=== PATIENT | female | born 1960 | race American Indian/Alaskan Native ===

== ENCOUNTER 2016-09-04 09:03 | Outpatient (CLI) | payer MEDICARE ==
--- NOTE | 2016-09-04 10:33 | Mammography Report ---
BILATERAL MAMMOGRAM: No previous studies available. CAD study utilized. FINDINGS: Predominance of adipose tissue bilaterally. No mass or microcalcification. Benign axillary nodes. IMPRESSION: Benign findings. Annual follow-up recommended. BI-RADS CATEGORY: 2 = Benign ACR BI-RADS MAMMOGRAPHIC CODES: 0 = Needs additional imaging evaluation; 1 = Negative; 2 = Benign; 3 = Probably benign; 4 = Suspicious; 5 = Malignant; 6 = Known biopsy-proven malignancy COMMENT: 1. Dense breast tissue, i.e., adenosis, fibrocystic changes, etc., may obscure an underlying neoplasm. 2. Approximately 10% of cancers are not detected with mammography. 3. A negative mammography report should not delay biopsy if a clinically suspicious mass is present. COMMENT: Patient follow-up letters are generated in [employer].
== END 2016-09-04 09:04 | disposition home or self-care (01) ==
LOC: MAMMO 09:03
PROVIDERS: ATTEND Internal Medicine
DX: Z12.31 Encounter for screening mammogram for malignant neoplasm of breast (principal)
CPT/HCPCS: 77067; G0202

== ENCOUNTER 2016-12-22 14:36 | Outpatient (CLI) | payer MEDICARE ==
--- NOTE | 2016-12-22 15:19 | XRay Report ---
Chest 2 views: 07/04/15. History: COPD hypertension. Findings: Normal cardiomediastinal silhouette the trachea is midline. Scarring right lung and left lower lobe. No interval change. No acute consolidation. Impression: No interval change. No acute consolidation.
== END 2016-12-22 14:37 | disposition home or self-care (01) ==
LOC: CARD 14:36
PROVIDERS: ATTEND Internal Medicine
DX: J44.9 Chronic obstructive pulmonary disease, unspecified (principal); I10 Essential (primary) hypertension
CPT/HCPCS: 71020; 93005; 93010

== ENCOUNTER 2017-07-30 15:49 | Emergency (ER) | payer MEDICARE | END 2017-07-30 15:50 | disposition left against medical advice (07) | LOC: ED 15:49 | DX: R50.9 Fever, unspecified (principal); R05 Cough; Z53.21 Procedure and treatment not carried out due to patient leaving prior to being seen by health care provider ==

== ENCOUNTER 2017-10-19 17:56 | Emergency (ER) | payer MEDICARE ==
[2017-10-19 18:20] VITALS: BP 115/93
--- NOTE | 2017-10-19 18:45 | Emergency Department Report ---
ED General Adult HPI - General Chief complaint: Upper Respiratory Infection Stated complaint: FLU LIKE SYMPTOMS Time Seen by Provider: 10/19/17 18:23 Source: patient Mode of arrival: Ambulatory Limitations: No Limitations - History of Present Illness Initial comments: 57 yo female presents with fever cough for 3 weeks. Hx of tobacco abuse. + productive cough. Gradual onset of symptoms. Mild upper back pain. Has had recurrent elbow and hand rash. Itchy. Improves with steroid cream but recurs. -: Gradual, week(s) (3) - Related Data Home Medications Medication Instructions Recorded Confirmed Last Taken ALBUTEROL Inhaler [Proair] 2 puff IH QID PRN 02/06/14 02/06/14 Unknown Fluticasone/Salmeterol [Advair 1 puff IH BID 02/06/14 02/06/14 Unknown Diskus 100-50 mcg] Levothyroxine [Synthroid] 125 mcg PO QAM 02/06/14 02/06/14 Unknown Topiramate [Topamax] 200 mg PO BID 02/06/14 02/06/14 Unknown cloNIDine [Catapres] 0.1 mg PO DAILY 02/06/14 02/06/14 Unknown Previous Rx's Medication Instructions Recorded Last Taken Type ALBUTEROL Inhaler [ProAir HFA 2 puff IH QID PRN #1 inhalation 04/21/14 Unknown Rx Inhaler] Cyclobenzaprine [Flexeril 10mg] 10 mg PO TID PRN #10 tablet 04/21/14 Unknown Rx Azithromycin [Zithromax Z-OSCAR] 250 mg PO DAILY #6 tablet 05/21/14 Unknown Rx Benzonatate [Tessalon Perles] 100 mg PO Q8HR PRN #30 capsule 05/21/14 Unknown Rx Prednisone 20 mg PO BID #10 tablet 05/21/14 Unknown Rx HYDROcodone/ACETAMINOPHEN [[place] 1 each PO BID #5 tablet 12/22/14 Unknown Rx 7.5-325 mg TAB] Ondansetron [Zofran Odt] 4 mg PO BID #4 tab.rapdis 12/22/14 Unknown Rx Cyclobenzaprine [Flexeril 10 MG 10 mg PO Q8H PRN #21 tablet 01/30/15 Unknown Rx TAB] HYDROcodone/APAP 10-325 [[place] 1 each PO Q6HR PRN #20 tablet 01/30/15 Unknown Rx 10-325 mg TAB] Brompheniramine/Pseudoephed/Dm 10 ml PO Q8H PRN #150 ml 07/04/15 Unknown Rx [Bromfed Dm Cough Syrup] methylPREDNISolone [Medrol Dose 4 mg PO QAM #1 pack 07/04/15 Unknown Rx Oscar] HYDROcodone/APAP 5-325 [[place] 1 each PO Q6HR PRN #15 tablet 08/19/15 Unknown Rx 5/325] methOCARBAMOL [Robaxin TAB] 500 mg PO BID #20 tab 10/25/15 Unknown Rx traMADol [Ultram 50 MG tab] 50 mg PO Q6HR PRN #21 tablet 10/25/15 Unknown Rx Levofloxacin [Levaquin] 750 mg PO QDAY 5 Days #5 tablet 10/19/17 Unknown Rx predniSONE [Deltasone] 3 tab PO QDAY 7 Days #21 tab 10/19/17 Unknown Rx Allergies Allergy/AdvReac Type Severity Reaction Status Date / Time codeine Allergy paranoid Verified 10/25/15 18:38 Tetracyclines Allergy Headache Verified 10/25/15 18:38 ED Review of Systems ROS: Stated complaint: FLU LIKE SYMPTOMS Other details as noted in HPI Comment: All other systems reviewed and negative Constitutional: fever. denies: malaise Respiratory: cough Cardiovascular: denies: chest pain ED Past Medical Hx - Past Medical History Hx Hypertension: Yes (verapamil) Hx Arthritis: Yes Hx Headaches / Migraines: Yes (Imitrex and topamax) Hx Asthma: Yes Additional medical history: hypothyroidism - Surgical History Additional Surgical History: hysterectomy. thyroidectomy. "eye surgery from thyroid". - Social History Smoking Status: Current Some Day Smoker Substance Use Type: None - Medications Home Medications: Home Medications Medication Instructions Recorded Confirmed Last Taken Type ALBUTEROL Inhaler [Proair] 2 puff IH QID PRN 02/06/14 02/06/14 Unknown History Fluticasone/Salmeterol [Advair 1 puff IH BID 02/06/14 02/06/14 Unknown History Diskus 100-50 mcg] Levothyroxine [Synthroid] 125 mcg PO QAM 02/06/14 02/06/14 Unknown History Topiramate [Topamax] 200 mg PO BID 02/06/14 02/06/14 Unknown History cloNIDine [Catapres] 0.1 mg PO DAILY 02/06/14 02/06/14 Unknown History ALBUTEROL Inhaler [ProAir HFA 2 puff IH QID PRN #1 inhalation 04/21/14 Unknown Rx Inhaler] Cyclobenzaprine [Flexeril 10mg] 10 mg PO TID PRN #10 tablet 04/21/14 Unknown Rx Azithromycin [Zithromax Z-OSCAR] 250 mg PO DAILY #6 tablet 05/21/14 Unknown Rx Benzonatate [Tessalon Perles] 100 mg PO Q8HR PRN #30 capsule 05/21/14 Unknown Rx Prednisone 20 mg PO BID #10 tablet 05/21/14 Unknown Rx HYDROcodone/ACETAMINOPHEN [[place] 1 each PO BID #5 tablet 12/22/14 Unknown Rx 7.5-325 mg TAB] Ondansetron [Zofran Odt] 4 mg PO BID #4 tab.rapdis 12/22/14 Unknown Rx Cyclobenzaprine [Flexeril 10 MG 10 mg PO Q8H PRN #21 tablet 01/30/15 Unknown Rx TAB] HYDROcodone/APAP 10-325 [[place] 1 each PO Q6HR PRN #20 tablet 01/30/15 Unknown Rx 10-325 mg TAB] Brompheniramine/Pseudoephed/Dm 10 ml PO Q8H PRN #150 ml 07/04/15 Unknown Rx [Bromfed Dm Cough Syrup] methylPREDNISolone [Medrol Dose 4 mg PO QAM #1 pack 07/04/15 Unknown Rx Oscar] HYDROcodone/APAP 5-325 [[place] 1 each PO Q6HR PRN #15 tablet 08/19/15 Unknown Rx 5/325] methOCARBAMOL [Robaxin TAB] 500 mg PO BID #20 tab 10/25/15 Unknown Rx traMADol [Ultram 50 MG tab] 50 mg PO Q6HR PRN #21 tablet 10/25/15 Unknown Rx Levofloxacin [Levaquin] 750 mg PO QDAY 5 Days #5 tablet 10/19/17 Unknown Rx predniSONE [Deltasone] 3 tab PO QDAY 7 Days #21 tab 10/19/17 Unknown Rx ED Physical Exam - General Limitations: No Limitations General appearance: alert, in no apparent distress - Head Head exam: Present: atraumatic, normocephalic - Eye Eye exam: Present: normal appearance - ENT ENT exam: Present: mucous membranes moist - Neck Neck exam: Present: normal inspection - Respiratory Respiratory exam: Present: normal lung sounds bilaterally. Absent: respiratory distress, wheezes, rales, rhonchi - Cardiovascular Cardiovascular Exam: Present: regular rate, normal rhythm, normal heart sounds. Absent: systolic murmur, diastolic murmur, rubs, gallop - GI/Abdominal GI/Abdominal exam: Present: soft, normal bowel sounds. Absent: tenderness, guarding, rebound - Extremities Exam Extremities exam: Present: normal inspection - Back Exam Back exam: Present: normal inspection - Neurological Exam Neurological exam: Present: alert, oriented X3 - Psychiatric Psychiatric exam: Present: normal affect, normal mood - Skin Skin exam: Present: warm, dry, intact, other (left elbox 5 cm circular region, left fifth finger and ulnar portion of hand erythema, patient constantly scratches both areas). Absent: rash ED Course Vital Signs 10/19/17 18:14 Temperature 98.7 F Pulse Rate 74 Respiratory 20 Rate Blood Pressure 115/93 O2 Sat by Pulse 98 Oximetry ED Medical Decision Making - Medical Decision Making acute bronchitis, abx indicated with length of symptoms and hx of tobacco use, contact dermatitis given prednisone for both dermatitis and bronchitis, recommended continued use of steroid cream OTC Critical care attestation.: If time is entered above; I have spent that time in minutes in the direct care of this critically ill patient, excluding procedure time. ED Disposition Clinical Impression: Acute bronchitis Disposition: DC-01 TO HOME OR SELFCARE Is pt being admited?: No Does the pt Need Aspirin: No Condition: Stable Instructions: Acute Bronchitis (ED) Prescriptions: Levofloxacin [Levaquin] 750 mg PO QDAY 5 Days #5 tablet predniSONE [Deltasone] 3 tab PO QDAY 7 Days #21 tab Time of Disposition: 18:49
== END 2017-10-19 18:55 | disposition home or self-care (01) ==
LOC: ED 17:56
DX: J20.9 Acute bronchitis, unspecified (principal); M54.9 Dorsalgia, unspecified; L53.8 Other specified erythematous conditions; I10 Essential (primary) hypertension; M19.90 Unspecified osteoarthritis, unspecified site; G43.909 Migraine, unspecified, not intractable, without status migrainosus; J45.909 Unspecified asthma, uncomplicated; F17.200 Nicotine dependence, unspecified, uncomplicated; E89.0 Postprocedural hypothyroidism; Z90.710 Acquired absence of both cervix and uterus; Z88.1 Allergy status to other antibiotic agents; Z88.5 Allergy status to narcotic agent
CPT/HCPCS: 99282

== ENCOUNTER 2017-12-21 08:31 | Outpatient (CLI) | payer MEDICARE ==
--- NOTE | 2017-12-21 11:29 | Mammography Report ---
Bilateral mammogram: Compared to 09/04/16. CAD study utilized. Findings: Predominantly adipose tissue bilaterally. No mass or microcalcification. Benign nodes. Impression: Benign findings. Annual followup recommended. BI-RADS CATEGORY: 2 = Benign ACR BI-RADS MAMMOGRAPHIC CODES: 0 = Needs additional imaging evaluation; 1 = Negative; 2 = Benign; 3 = Probably benign; 4 = Suspicious; 5 = Malignant; 6 = Known biopsy-proven malignancy COMMENT: 1. Dense breast tissue, i.e., adenosis, fibrocystic changes, etc., may obscure an underlying neoplasm. 2. Approximately 10% of cancers are not detected with mammography. 3. A negative mammography report should not delay biopsy if a clinically suspicious mass is present. COMMENT: Patient follow-up letters are generated in [employer].
== END 2017-12-21 08:32 | disposition home or self-care (01) ==
LOC: MAMMO 08:31
PROVIDERS: ATTEND Internal Medicine
DX: Z12.31 Encounter for screening mammogram for malignant neoplasm of breast (principal)
CPT/HCPCS: 77067

== ENCOUNTER 2018-01-17 07:41 | Outpatient (CLI) | payer MEDICARE ==
--- NOTE | 2018-01-17 12:21 | Nuclear Medicine Report ---
NUCLEAR MEDICINE TRIPLE PHASE BONE SCAN HISTORY: Status post total right knee replacement, right knee pain, evaluate for infection. COMPARISON: None. FINDINGS: Anterior perfusion images of both lower extremities demonstrates symmetric and homogeneous perfusion bilaterally. Blood pool images demonstrate normal and homogeneous distribution of the radiotracer to the visualized lower extremities. Delayed whole-body images demonstrate physiologic uptake of the radiotracer. There is minimal periarticular uptake surrounding the right knee prosthesis but this appears within normal limits given history of knee replacement 6 months ago. No other areas of increased uptake are noted. IMPRESSION: Unremarkable exam. No evidence for infection.
[2018-01-17 12:25] LABS: Basophils % (Auto) 0.6 % (0.0-1.8); Eosinophils # (Auto) 0.2 K/mm3 (0.0-0.4); Eosinophils % (Auto) 3.8 % (0.0-4.3); Hematocrit 39.7 % (30.3-42.9); Lymphocytes # (Auto) 2.6 K/mm3 (1.2-5.4); Lymphocytes % (Auto) 44.3 % (13.4-35.0); Mean Corpuscular HGB Conc 33 % (30-34); Mean Corpuscular Hemoglobin 30 pg (28-32); Mean Corpuscular Volume 92 fl (79-97); Monocytes # (Auto) 0.5 K/mm3 (0.0-0.8); Platelet Count 209 K/mm3 (140-440); Red Cell Distribution Width 15.7 % (13.2-15.2)
[2018-01-17 13:05] LABS: Erythrocyte Sedimentation Rate 10 mm/Hr (0-20)
== END 2018-01-17 07:42 | disposition home or self-care (01) ==
LOC: NM 07:41
DX: M17.11 Unilateral primary osteoarthritis, right knee (principal); J45.909 Unspecified asthma, uncomplicated; F32.9 Major depressive disorder, single episode, unspecified; F17.210 Nicotine dependence, cigarettes, uncomplicated; I10 Essential (primary) hypertension; E07.9 Disorder of thyroid, unspecified; Z90.710 Acquired absence of both cervix and uterus; Z96.651 Presence of right artificial knee joint
CPT/HCPCS: 36415; 78315; 85025; 85652; 86140; A9503

== ENCOUNTER 2019-05-29 10:55 | Outpatient (CLI) | payer MEDICARE ==
--- NOTE | 2019-05-29 13:29 | Magnetic Resonance Report ---
MRI THORACIC SPINE WITHOUT CONTRAST INDICATION / CLINICAL INFORMATION: PAIN IN THORACIC SPINE. Center back pain. TECHNIQUE: Multisequence, multiplanar images of the thoracic spine were obtained. COMPARISON: None available. FINDINGS: ALIGNMENT: No significant malalignment with no significant scoliosis. VERTEBRAE:Normal marrow signal and vertebral body height for age. VISUALIZED SPINAL CORD: No significant abnormality. INTERVERTEBRAL DISCS: There is mild to moderate disc desiccation and narrowing throughout the mid to lower thoracic spine. Minimal posterior bulging discs are identified at T4-5, T5-6 and T6-7. No evide nce for large herniation, large bulging disc or central canal stenosis. The posterior elements are in appropriate relationship. No facet hypertrophy is identified. Longitudinal ligaments are unremarkabl e. PARASPINAL SOFT TISSUES: No significant abnormality. ADDITIONAL FINDINGS: None. IMPRESSION: Mild thoracic spondylosis as described above. No focal disc herniation, spinal canal stenosis or nerv e root compression. Signer Name: Surya Michael Jr, MD Signed: 05/29/2019 1:24 PM Workstation Name: [id number]
== END 2019-05-29 10:56 | disposition home or self-care (01) ==
LOC: MRI 10:55
PROVIDERS: ATTEND Specialist
DX: M47.894 Other spondylosis, thoracic region (principal); I10 Essential (primary) hypertension; Z90.710 Acquired absence of both cervix and uterus; M19.90 Unspecified osteoarthritis, unspecified site; J45.909 Unspecified asthma, uncomplicated; F32.9 Major depressive disorder, single episode, unspecified
CPT/HCPCS: 72146

== ENCOUNTER 2019-06-24 18:32 | Emergency (ER) | payer MEDICARE ==
[2019-06-24 18:48] VITALS: BP 138/100
[2019-06-24] MEDS ORDERED: dexAMETHasone 4 MG/ML VIAL IV ONE (22:00)
[2019-06-24] MEDS ORDERED: KETOROLAC 30 MG/1 ML INJ IV ONE (22:00)
[2019-06-24] MEDS ORDERED: oxyCODONE /ACETAMINOPHEN 5-325MG TAB PO ONE (22:00)
[2019-06-24] MEDS ORDERED: METOCLOPRAMIDE 10 MG/2 ML INJ IV ONE (22:00)
[2019-06-24] MEDS ORDERED: SUMAtriptan SUCCINATE 6 MG/0.5 ML INJ SUB-Q ONE (22:00)
[2019-06-24] MEDS ORDERED: diphenhydrAMINE 50 MG/ML VIAL IV ONE (22:00)
--- NOTE | 2019-06-24 22:04 | Emergency Department Report ---
ED Headache HPI - General Chief Complaint: Headache Stated Complaint: HEADACHE/VOMITING Time Seen by Provider: 06/24/19 22:00 Source: patient Exam Limitations: no limitations - History of Present Illness Initial Comments: Mrs. Perez is a very pleasant 58-year-old female with history of migraine headaches, arthritis, asthma, hypertension, thyroid disease who presents with typical migraine headache in the left temporal region. After receiving eye surgery for cataracts and glaucoma in the left eye, she's had more severe persistent migraine headaches. She has seen her [facility]er [facility] twice since the initial surgery. She also has seen her personal neurologist for treatment of migraine headaches. She has used all of her medication for migraine headaches including Imitrex and Fioricet. Her neurologist administered local injections for blocks in her neck and facial region. The blocks did help for 2 days. However headache has returned. She denies fever. Denies vomiting. Denies visual changes. She is legally blind. Timing/Duration: other (3 weeks) Quality: severe, constant Head Injury Location: other (no injury but left tempora region area of pain) Recent Head Trauma: frequent headaches, chronic headaches Associated Symptoms: denies symptoms Allergies/Adverse Reactions: Allergies codeine Allergy (Verified 10/25/15 18:38) paranoid Tetracyclines Allergy (Verified 10/25/15 18:38) Headache Home Medications: Ambulatory Orders ALBUTEROL Inhaler (OR & NICU) [Proair] 2 puff IH QID PRN 02/06/14 Fluticasone/Salmeterol [Advair Diskus 100-50 mcg] 1 puff IH BID 02/06/14 Levothyroxine [Synthroid] 125 mcg PO QAM 02/06/14 Topiramate [Topamax] 200 mg PO BID 02/06/14 cloNIDine [Catapres] 0.1 mg PO DAILY 02/06/14 ALBUTEROL Inhaler (OR & NICU) [ProAir HFA Inhaler] 2 puff IH QID PRN #1 inhalation 04/21/14 Cyclobenzaprine [Flexeril 10mg] 10 mg PO TID PRN #10 tablet 04/21/14 Azithromycin [Zithromax Z-OSCAR] 250 mg PO DAILY #6 tablet 05/21/14 Benzonatate [Tessalon Perles] 100 mg PO Q8HR PRN #30 capsule 05/21/14 predniSONE [Prednisone] 20 mg PO BID #10 tablet 05/21/14 HYDROcodone/ACETAMINOPHEN [[place] 7.5-325 mg TAB] 1 each PO BID #5 tablet 12/22/14 Ondansetron [Zofran Odt] 4 mg PO BID #4 tab.rapdis 12/22/14 Cyclobenzaprine [Flexeril 10 MG TAB] 10 mg PO Q8H PRN #21 tablet 01/30/15 HYDROcodone/APAP 10-325 [[place] 10-325 mg TAB] 1 each PO Q6HR PRN #20 tablet 01/30/15 Brompheniramine/Pseudoephed/Dm [Bromfed Dm Cough Syrup] 10 ml PO Q8H PRN #150 ml 07/04/15 methylPREDNISolone [Medrol Dose Oscar] 4 mg PO QAM #1 pack 07/04/15 HYDROcodone/APAP 5-325 [[place] 5/325] 1 each PO Q6HR PRN #15 tablet 08/19/15 methOCARBAMOL [Robaxin TAB] 500 mg PO BID #20 tab 10/25/15 traMADoL [Ultram 50 MG tab] 50 mg PO Q6HR PRN #21 tablet 10/25/15 levoFLOXacin [Levaquin] 750 mg PO QDAY 5 Days #5 tablet 10/19/17 predniSONE [Deltasone] 3 tab PO QDAY 7 Days #21 tab 10/19/17 ED Review of Systems ROS: Stated complaint: HEADACHE/VOMITING Other details as noted in HPI Comment: All other systems reviewed and negative Constitutional: denies: fever, malaise Respiratory: denies: cough Cardiovascular: denies: chest pain Gastrointestinal: denies: abdominal pain Neurological: headache. denies: numbness, paresthesias ED Past Medical Hx - Past Medical History Previous Medical History?: Yes Hx Hypertension: Yes (verapamil) Hx Arthritis: Yes Hx Headaches / Migraines: Yes (Imitrex and topamax) Hx Asthma: Yes Additional medical history: hypothyroidism - Surgical History Past Surgical History?: Yes Additional Surgical History: hysterectomy. thyroidectomy. "eye surgery from thyroid". , Cataract surgery 05-30-2019 - Social History Smoking Status: Never Smoker Substance Use Type: Alcohol, Prescribed - Medications Home Medications: Home Medications Medication Instructions Recorded Confirmed Last Taken Type ALBUTEROL Inhaler (OR & NICU) 2 puff IH QID PRN 02/06/14 02/06/14 Unknown History [Proair] Fluticasone/Salmeterol [Advair 1 puff IH BID 02/06/14 02/06/14 Unknown History Diskus 100-50 mcg] Levothyroxine [Synthroid] 125 mcg PO QAM 02/06/14 02/06/14 Unknown History Topiramate [Topamax] 200 mg PO BID 02/06/14 02/06/14 Unknown History cloNIDine [Catapres] 0.1 mg PO DAILY 02/06/14 02/06/14 Unknown History ALBUTEROL Inhaler (OR & NICU) 2 puff IH QID PRN #1 inhalation 04/21/14 Unknown Rx [ProAir HFA Inhaler] Cyclobenzaprine [Flexeril 10mg] 10 mg PO TID PRN #10 tablet 04/21/14 Unknown Rx Azithromycin [Zithromax Z-OSCAR] 250 mg PO DAILY #6 tablet 05/21/14 Unknown Rx Benzonatate [Tessalon Perles] 100 mg PO Q8HR PRN #30 capsule 05/21/14 Unknown Rx predniSONE [Prednisone] 20 mg PO BID #10 tablet 05/21/14 Unknown Rx HYDROcodone/ACETAMINOPHEN [[place] 1 each PO BID #5 tablet 12/22/14 Unknown Rx 7.5-325 mg TAB] Ondansetron [Zofran Odt] 4 mg PO BID #4 tab.rapdis 12/22/14 Unknown Rx Cyclobenzaprine [Flexeril 10 MG 10 mg PO Q8H PRN #21 tablet 01/30/15 Unknown Rx TAB] HYDROcodone/APAP 10-325 [[place] 1 each PO Q6HR PRN #20 tablet 01/30/15 Unknown Rx 10-325 mg TAB] Brompheniramine/Pseudoephed/Dm 10 ml PO Q8H PRN #150 ml 07/04/15 Unknown Rx [Bromfed Dm Cough Syrup] methylPREDNISolone [Medrol Dose 4 mg PO QAM #1 pack 07/04/15 Unknown Rx Oscar] HYDROcodone/APAP 5-325 [[place] 1 each PO Q6HR PRN #15 tablet 08/19/15 Unknown Rx 5/325] methOCARBAMOL [Robaxin TAB] 500 mg PO BID #20 tab 10/25/15 Unknown Rx traMADoL [Ultram 50 MG tab] 50 mg PO Q6HR PRN #21 tablet 10/25/15 Unknown Rx levoFLOXacin [Levaquin] 750 mg PO QDAY 5 Days #5 tablet 10/19/17 Unknown Rx predniSONE [Deltasone] 3 tab PO QDAY 7 Days #21 tab 10/19/17 Unknown Rx ED Physical Exam - General Limitations: No Limitations General appearance: alert, in no apparent distress - Head Head exam: Present: atraumatic, normocephalic - Eye Eye exam: Present: normal appearance - ENT ENT exam: Present: mucous membranes moist - Neck Neck exam: Present: normal inspection, full ROM - Respiratory Respiratory exam: Present: normal lung sounds bilaterally. Absent: respiratory distress, wheezes, rales, rhonchi - Cardiovascular Cardiovascular Exam: Present: regular rate, normal rhythm, normal heart sounds. Absent: systolic murmur, diastolic murmur, rubs, gallop - GI/Abdominal GI/Abdominal exam: Present: soft, normal bowel sounds. Absent: distended, tenderness, guarding, rebound - Extremities Exam Extremities exam: Present: normal inspection - Neurological Exam Neurological exam: Present: alert, oriented X3 - Psychiatric Psychiatric exam: Present: normal affect, normal mood - Skin Skin exam: Present: warm, dry, intact, normal color. Absent: rash ED Course Vital Signs 06/24/19 06/24/19 06/24/19 18:43 22:57 22:59 Temperature 98.5 F Pulse Rate 79 Respiratory 18 16 16 Rate Blood Pressure 138/100 O2 Sat by Pulse 97 Oximetry ED Medical Decision Making - Medical Decision Making Migraine headache typical for patient. After treatment in the ED, Mrs. Perez received much relief. Upon reassessment, Mrs. Perez was able to produce a prescription from grader meat Dr. Chan requesting ESR to r/o giant cell arteritis. ESR 5 Mrs. Perez was given paper copy of ESR results. Critical care attestation.: If time is entered above; I have spent that time in minutes in the direct care of this critically ill patient, excluding procedure time. ED Disposition Clinical Impression: Migraine headache, Hx of cataract, Hx of glaucoma Disposition: DC-01 TO HOME OR SELFCARE Is pt being admited?: No Does the pt Need Aspirin: No Condition: Stable Instructions: Migraine Headache (ED) Additional Instructions: Please contact your personal neurologist for further treatment options.
== END 2019-06-25 01:45 | disposition home or self-care (01) ==
LOC: ED 18:32
DX: G43.909 Migraine, unspecified, not intractable, without status migrainosus (principal); I10 Essential (primary) hypertension; M19.90 Unspecified osteoarthritis, unspecified site; J45.909 Unspecified asthma, uncomplicated; E03.9 Hypothyroidism, unspecified; F10.10 Alcohol abuse, uncomplicated; Z90.710 Acquired absence of both cervix and uterus; Z98.42 Cataract extraction status, left eye; Z86.69 Personal history of other diseases of the nervous system and sense organs; Z79.899 Other long term (current) drug therapy; Z88.5 Allergy status to narcotic agent; Z88.1 Allergy status to other antibiotic agents
CPT/HCPCS: 36415; 85652; 86140; 96372; 96374; 96375; 99283; J1100; J1200; J1885; J2765; J3030

== ENCOUNTER 2019-07-12 10:06 | Outpatient (CLI) | payer MEDICARE ==
--- NOTE | 2019-07-12 11:44 | Magnetic Resonance Report ---
MR brain wo con INDICATION / CLINICAL INFORMATION: 58 years Female; CHRONIC MIGRAINE / HEADACHE. A TECHNIQUE: Multiplanar, multisequence MR images of the brain were obtained. COMPARISON: None available. FINDINGS: BRAIN / INTRACRANIAL CONTENTS: No acute hemorrhage, mass effect, midline shift, hydrocephalus, or acu te, large territorial infarct. No chronic infarct or atrophy. There are mild areas of increased signal intensity on FLAIR imaging in the white matter of the cerebr al hemispheres. These are nonspecific findings and may be related to microangiopathy (hypertension, d iabetes, atherosclerosis), given the patient's age. CRANIOCERVICAL JUNCTION: No significant abnormality. VASCULAR FLOW-VOIDS: No significant abnormality. ORBITS: No significant abnormality of visualized orbits. SINUSES / MASTOIDS: There is a prominent cystlike lesion which appears to be chronically deforming th e posterior wall of the right maxillary sinus. This finding may be emanating from the maxillary alveo lar ridge on the right - dentigerous or other odontogenic type cyst might be a consideration. CT of t he maxillofacial region may be of benefit. This finding measures 3.5 cm in maximum dimension. Mucosal thickening seen in the ethmoids. Mucous retention cyst is also seen in the posterior ethmoids on the left. ADDITIONAL FINDINGS: None. IMPRESSION: 1. No focal mass, hemorrhage, hydrocephalus, or acute ischemia. 2. Well-circumscribed cystic type lesion along the posterior aspect of the right maxillary alveolar r idge, chronically deforming the right maxillary sinus. CT of the maxillofacial region may be of benef it. Signer Name: Mandeep Emerson MD, III Signed: 07/12/2019 11:39 AM Workstation Name: [id number]
== END 2019-07-12 10:07 | disposition home or self-care (01) ==
LOC: MRI 10:06
PROVIDERS: ATTEND Psychiatry & Neurology Neurology
DX: G43.709 Chronic migraine without aura, not intractable, without status migrainosus (principal)
CPT/HCPCS: 70551

== ENCOUNTER 2019-08-23 07:51 | Outpatient (CLI) | payer MEDICARE ==
--- NOTE | 2019-08-23 09:26 | Cat Scan Report ---
CT sinuses without contrast CLINICAL HISTORY: Maxillary cyst. FINDINGS: No previous exams available for comparison. There is a largest cystic appearing lesion with in the right maxillary sinus measuring 2.4 similar transverse by 3.3 similar AP by 3.3 similar sagitt ally and greatest dimensions at. This finding at demonstrates calcified margin and involves the adjac ent right maxilla and may be odontogenic in origin; correlation would be needed given the history of. There is adjacent mild mucosal thickening along the inferior, more anterior right maxillary sinus. T here are postsurgical changes with right antrectomy. There is opacification of the posterior left eth moid sinus.. There is mild mucosal thickening within the anterior ethmoid air cells bilaterally. 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 The sphenoid sinuses are pneumatized. There is deformity of the medial and left inferior orbital leal which may be related to previous tra hugh; correlation would be needed. No post septal inflammatory changes are identified. The optic globe s demonstrate appropriate to size and configuration. The nasal septum is midline. All CT scans at [facility] s location are performed using the CT dose reduction for ALARA by means of automated exposure control . IMPRESSION: There is a large cystic lesion within the right maxillary sinus as a detailed above; correlation be n eeded given history and any previous outside imaging. There is scattered opacification and mucosal thickening within the ethmoid air cells. There is deformity of the medial and left inferior orbital leal which may be related to previous tra hugh. Signer Name: Vin Siddiqui MD Signed: 08/23/2019 9:22 AM Workstation Name: [id number]
== END 2019-08-23 07:52 | disposition home or self-care (01) ==
LOC: CT 07:51
PROVIDERS: ATTEND Psychiatry & Neurology Neurology
DX: M27.40 Unspecified cyst of jaw (principal); H05.30 Unspecified deformity of orbit; Z98.890 Other specified postprocedural states
CPT/HCPCS: 70486

== ENCOUNTER → 2019-09-06 | Outpatient (CLI) | payer MEDICARE | END | disposition home or self-care (01) | LOC: SLR 11:00 | PROVIDERS: ATTEND Otolaryngology | DX: G47.30 Sleep apnea, unspecified (principal) | CPT/HCPCS: 95810 ==

== ENCOUNTER 2019-09-21 11:00 | Outpatient (CLI) | payer MEDICARE | END 2019-09-21 11:01 | disposition home or self-care (01) | LOC: SLR 11:00 | PROVIDERS: ATTEND Otolaryngology | DX: G47.33 Obstructive sleep apnea (adult) (pediatric) (principal); R40.0 Somnolence | CPT/HCPCS: 95811 ==